=== PATIENT | male | born 1980 | race Caucasian/White ===

== ENCOUNTER 2019-01-08 13:31 | Outpatient (REF) | payer MEDICARE, MEDICAID, SELFPAY ==
[2019-01-08 14:13] LABS: Abs Immature Grans 0.01 k/cumm (0.0-0.09); Absolute Basophil Count 0.11 k/cumm (0.0-0.2); Absolute Eosinophil Count 0.27 k/cumm (0.0-0.7); Absolute Lymphocyte Count 1.44 k/cumm (1.2-3.4); Absolute Monocyte Count 0.59 k/cumm (0.11-0.7); Absolute Neutrophil Count 3.01 k/cumm (1.2-6.7); HCT 46.3 % (40.0-50.0); HGB 15.8 g/dL (13.5-17.5); Immature Grans % 0.2; Lymphocytes % 26.5; Mean Corp. HGB Concentration 34.1 g/dL (32.0-36.0); Mean Corpuscular Volume 99.6 fL (80-95); Mean Platelet Volume 10.6 fL (8.0-11.0); Monocytes % 10.9; Neutrophils % 55.4; Platelet Count 241 x1000/uL (130-400); RBC 4.65 m/cumm (4.50-6.00); RBC Distribution Width 11.6 % (11.8-14.1); White Blood Cell Count 5.43 k/cumm (4.4-10.8)
[2019-01-08 14:22] LABS: ALT 37 U/L (12-78); AST 19 U/L (15-37); Albumin 3.7 g/dL (3.4-5.0); Alkaline Phosphatase 70 U/L (46-116); Anion Gap 7.8 mmol/L (3-11); BUN 6 mg/dL (7-18); Bilirubin, Total 0.2 mg/dL (0.2-1.0); CO2 29.2 mmol/L (21.0-32.0); CREATININE 0.48 mg/dL (0.70-1.30); Calcium 8.7 mg/dL (8.5-10.1); Chloride 98 mmol/L (98-107); Glucose 132 mg/dL (70-100); Potassium 3.8 mmol/L (3.5-5.1); Sodium 135 mmol/L (136-145); TROPONIN-I 9.7 ug/mL (4.0-12.0); TSH (W/Ref FT4) 2.44 uIU/mL (0.36-3.74); Total Protein 7.9 g/dL (6.4-8.2)
[2019-01-09 16:45] LABS: Felbamate (Felbatol) 19.5 mcg/mL
== END 2019-01-08 13:51 ==
LOC: LBN 13:31
PROVIDERS: PCP Family Medicine; Visit Provider Family Medicine
DX: G40.909 Epilepsy, unspecified, not intractable, without status epilepticus (principal); R40.3 Persistent vegetative state; Z51.81 Encounter for therapeutic drug level monitoring; Z79.899 Other long term (current) drug therapy
CPT/HCPCS: 80053; 80299; 80156; 84443; 85025